=== PATIENT | male | born 1965 | race Caucasian/White ===

== ENCOUNTER 2019-11-29 15:20 | Emergency (ER) | payer OTHER, SELFPAY ==
--- NOTE | ~2019-11-29 | CT_ITS ---
EXAMINATION: CT lumbar spine wo torsten EXAM DATE: 11/29/2019 15:49 INDICATION: Initial encounter following injury, with pain of the severe back pain, after fall. Radia ting down right leg. TECHNIQUE: Spiral CT lumbar spine was performed without contrast. Axial, coronal and sagittal images of the lumbar spine were reviewed. The dose-length product (DLP) for this examination was 959.83 mGy- cm. The exposure was tailored according to patient size (auto mA exposure control), and iterative re construction (ASIR) was used as additional dose reduction technique. There is no prior study for com aleksandra. FINDINGS: Sacrum, sacroiliac joints, sacral arcuate lines are intact. Shunt/identified within the lower abdomen . Probable 2 cm hemangioma within the L4 vertebral body. There is moderate disc disease L2-L5, and mi ld chronic appearing loss of vertebral body heights L2-L4 with moderate sized Schmorl's nodes at thes e endplates. There is no evidence of acute lumbar fracture or spondylolysis. There is no disc space widening or traumatic vertebral body subluxation suspected. Paraspinal soft tissue is unremarkable. Vertebral body and disc heights are well-maintained. There is moderate disc bulge at L4-5 causing moderate central canal and neural foraminal stenosis. Lesser stenosis at the other levels. Mild to m oderate scattered colonic diverticulosis. Overall mild lumbar facet arthropathy. A detailed level by level evaluation of spondylosis can be added as addendum if requested. IMPRESSION: 1. No acute lumbar findings. 2. Moderate spondylosis at L4-5. Reviewed, dictated and finalized at location A.
[2019-11-29 15:24] VITALS: BP 129/64; PULSE 58; RESP 18; TEMP 36.8; O2SAT 98
[2019-11-29] MEDS: MORPHINE SULFATE 4 MG/ML INJ IV PUSH (16:00)
--- NOTE | 2019-11-29 16:48 | ED.BACK ---
HPI - Back Pain/Injury General Chief Complaint: Back Pain/Injury Stated Complaint: severe back pain after fall Time Seen by Provider: 11/29/19 15:23 History of Present Illness HPI Narrative: Patient is a 54-year-old male who presents the ER with low back pain. Patient was moving a plant yesterday when he slipped and fell landing on his buttock. He had sudden onset pain in his low back was progressively worsening over the last 24 hours. Pain radiates down his right leg to his big toe. No saddle anesthesia or difficulty with urination/defecation. He is tried no oral medications for his pain. Pain is worsened by bending/standing. No alleviating factors other than laying on his left side for improvement of discomfort. Related Data Allergies Allergy/AdvReac Type Severity Reaction Status Date / Time iodine Allergy Unknown Skin Verified 07/02/19 13:15 irritation Contrast Media Allergy Unknown Unknown Uncoded 07/02/19 13:15 Review of Systems Review of Systems: All systems reviewed & are unremarkable except as noted in HPI and below Musculoskeletal: Musculoskeletal: Reports back pain and Reports muscle cramps Neurologic: Denies focal weakness and Denies numbness PMFSH Past Medical History Medical History (Updated 11/29/19 @ 16:52 by Billy Gonsalves MD) Abscess Social History Social History (Updated 07/02/19 @ 13:19 by Magdalena Torres CMA) Smoking status: Former smoker Second hand tobacco smoke exposure: No Smoking end date: 06/30/15 Alcohol intake: never Substance use: current Substance use type: marijuana Other substance usage details: medical perscription Gender identity (if verbalized by the patient): Male Exam Narrative: Exam Narrative: GENERAL: Uncomfortable-appearing, well-nourished, and in no acute distress. HEAD: Normocephalic, atraumatic. ENT: Mucous membranes moist. CHEST: Clear to auscultation. No respiratory distress. HEART: Regular rate and rhythm. Normal peripheral pulses. ABDOMEN: Soft, nontender, nondistended. EXTREMITIES: Normal range of motion. No edema. Back: Midline tenderness over L3-L4 midline as well as in the right paraspinal musculature. No abrasions or contusions. NEURO: No focal deficits. Alert and oriented x3. PSYCH: Normal mood and affect. Course Course Emergency Course: Patient informed of results. Pain improved with morphine. Discussed treatment plan and patient verbalized understanding. Vital Signs Vital signs: Vital Signs Temperature 98.3 F 11/29/19 15:24 Pulse Rate 58 L 11/29/19 15:24 Respiratory Rate 18 11/29/19 15:24 Blood Pressure 129/64 11/29/19 15:24 Pulse Oximetry 98 11/29/19 15:24 Temperature 98.3 F 11/29/19 15:24 Pulse Rate 58 L 11/29/19 15:24 Respiratory Rate 18 11/29/19 15:24 Blood Pressure 129/64 11/29/19 15:24 Pulse Oximetry 98 11/29/19 15:24 Discharge Plan Discharge Clinical Impression: Strain of lumbar region Patient Disposition: Home, Self-Care Condition: Stable Instructions: Acute Low Back Pain (ED) Additional Instructions: Return to the ER if you have increased pain in your back, you develop lower extremity weakness/numbness/paralysis, you have numbness or tingling in your private parts, or you are unable to control your ability to urinate/stool. Prescriptions: New hydrocodone-acetaminophen 5-325 mg tablet 1 tablet PO Q6H PRN (Reason: pain) Qty: 20 RF: 0 naproxen 500 mg tablet 500 mg PO BID Qty: 20 RF: 0 cyclobenzaprine 10 mg tablet 10 mg PO TID PRN (Reason: muscle spasm) Qty: 20 RF: 0 No Action lamotrigine 150 mg tablet 150 mg PO BID Qty: 180 RF: 3 duloxetine 30 mg capsule,delayed release(DR/EC) 30 mg PO DAILY Qty: 90 RF: 0 sertraline 100 mg tablet 200 mg PO DAILY Qty: 180 RF: 0 Follow-up/Referrals: Eli Herndon MD [Primary Care Provider] - 1 Week
[2019-11-29 17:21] VITALS: BP 138/76; PULSE 70; RESP 20; O2SAT 99
== END 2019-11-29 17:23 | disposition home or self-care (01) ==
PROVIDERS: Emergency Provider Emergency Medicine; PCP Family Medicine
DX: S39.012A Strain of muscle, fascia and tendon of lower back, initial encounter (principal); Z87.891 Personal history of nicotine dependence; W01.0XXA Fall on same level from slipping, tripping and stumbling without subsequent striking against object, initial encounter
CPT/HCPCS: 72131; 96374; 99284; J2270

== ENCOUNTER 2023-09-25 12:46 | Outpatient (CLI) | payer OTHER, SELFPAY ==
--- NOTE | ~2023-09-25 | CT_ITS ---
EXAMINATION: CT brain wo con DATE: 09/25/2023 13:09 INDICATION: Status post shunt placement. Recent fall. TECHNIQUE: Computed tomography (CT) of the head was performed without intravenous contrast. The dose- length product was 645.69 mGy-cm. Automated exposure control and iterative reconstruction technique w ere employed. COMPARISON: CT dated 10/17/2015 FINDINGS: There is an acute right frontal-parietal epidural hemorrhage. The hemorrhage measures appro ximately 1.7 cm transversely. There is mass effect. Right sided ventriculostomy catheter tip in the l ateral ventricle. No significant midline shift. No depressed skull fracture is seen. Paranasal sinuse s demonstrate mild mucosal thickening of the ethmoid and sphenoid sinuses. Mastoids are pneumatized. No infarction. IMPRESSION: 1. Acute right hemispheric epidural hemorrhage with mild mass effect. No midline shift. Reviewed, dictated and finalized at location L. IMPRESSION: 1. Acute right hemispheric epidural hemorrhage with mild mass effect. No midlin e shift.
== END 2023-09-25 12:47 ==
PROVIDERS: PCP Family Medicine; Visit Provider Physician Assistant
DX: S06.4XAA Epidural hemorrhage with loss of consciousness status unknown, initial encounter (principal); Z98.2 Presence of cerebrospinal fluid drainage device
CPT/HCPCS: 70450

== ENCOUNTER 2023-11-14 13:52 | Outpatient (CLI) | payer OTHER, SELFPAY ==
--- NOTE | ~2023-11-14 | CT_ITS ---
EXAMINATION: CT brain wo con DATE: 11/14/2023 14:04 INDICATION: Ventricular peritoneal shunt. TECHNIQUE: Computed tomography (CT) of the head was performed without intravenous contrast. The mA wa s adjusted according to patient size. Iterative reconstruction technique was employed. The dose-lengt h product was 645.69 mGy-cm. COMPARISON: Head CT 09/25/2023 FINDINGS: There is a right frontoparietal subdural hematoma of mixed density with maximum thickness o f 2.0 cm. There is no acute ischemic infarct or abnormal mass lesion. The ventricles are dilated out of proportion to the size of the sulci. There is 3 mm leftward midline shift. There is a right fronta l ventriculostomy catheter with tip at the septum pellucidum. There is mucosal thickening in the para nasal sinuses. The orbits are normal. The mastoid air cells are normal. IMPRESSION: 1. Right frontoparietal subdural hematoma, stable from 09/25/2023. 2. Stable ventriculomegaly with shunt catheter in expected position. Reviewed, dictated and finalized at location E.
== END 2023-11-14 13:53 ==
PROVIDERS: PCP Family Medicine; Visit Provider Neurological Surgery
DX: I62.03 Nontraumatic chronic subdural hemorrhage (principal); Z98.2 Presence of cerebrospinal fluid drainage device
CPT/HCPCS: 70450

== ENCOUNTER 2024-02-24 14:33 | Outpatient (CLI) | payer OTHER, SELFPAY ==
--- NOTE | ~2024-02-24 | CT_ITS ---
EXAMINATION: CT brain wo con DATE: 02/24/2024 14:47 INDICATION: Subdural hematoma TECHNIQUE: Computed tomography (CT) of the head was performed without intravenous contrast. Sagittal and coronal reconstructions were performed. Automated exposure control and iterative reconstruction t echnique were employed. The dose-length product was 726.40 mGy-cm. COMPARISON: head CT dated 11/14/2023 FINDINGS: Again seen is a right frontal ventriculostomy catheter with tip along the septum pellucidum. Again se en is now more symmetric ventriculomegaly with significant decrease in the prior mass effect resultin g from the chronic right frontoparietal subdural hematoma which is decreased in size, previously olvin uring up to 1.9 cm in thickness, currently measuring 10 mm in thickness. The prior 3 mm [id number] midline shift has also resolved. No acute infarction or acute intracranial hemorrhage. No abnormal mass lesion. Mild mucoperiosteal thickening the bilateral ethmoid sinuses. The orbits and mastoid air cells are normal. IMPRESSION: 1. Decrease in size of a chronic right frontoparietal subdural hematoma with corresponding decrease i n the degree of mass effect upon the right lateral ventricle and resolution of the prior minimal righ t to left midline shift. 2. Otherwise stable ventriculomegaly with unchanged right frontal ventriculostomy catheter in expecte d position. Reviewed, dictated and finalized at location A. IMPRESSION: 1. Decrease in size of a chronic right frontoparietal subdural hematoma with co rresponding decrease in the degree of mass effect upon the right lateral ventri olegario and resolution of the prior minimal right to left midline shift. 2. Otherwise stable ventriculomegaly with unchanged right frontal ventriculosto my catheter in expected position.
== END 2024-02-24 14:34 ==
LOC: GOSHIMG 14:33
PROVIDERS: PCP Family Medicine
DX: S06.5XAA Traumatic subdural hemorrhage with loss of consciousness status unknown, initial encounter (principal); X58.XXXA Exposure to other specified factors, initial encounter
CPT/HCPCS: 70450

== ENCOUNTER 2024-04-23 15:34 | Outpatient (CLI) | payer OTHER, SELFPAY ==
--- NOTE | ~2024-04-23 | CT_ITS ---
CT brain wo con Ordering provider: Licha Aguilar History: 59 years Male with . Subdural hematoma . Comparison: February 24, 2024 Technique: CT of the head without contrast. Radiation reduction technique utilized. The dose-length product was 726.4 mGy-cm. FINDINGS: BRAIN PARENCHYMA AND CSF SPACES: Dilated ventricles with right frontal shunt is noted. The tip of the shunt tube is near to the midline.3 No midline shift, mass effect or hemorrhage. The brain parenchy ma and CSF spaces are otherwise normal. VISUALIZED PARANASAL SINUSES: Well aerated. MASTOIDS: Well aerated. BONES: The bones appear intact. SOFT TISSUES: Visualized nasopharynx is normal. Superficial soft tissues are normal. IMPRESSION: No acute intracranial findings. Hydrocephalus which is slightly increased compared to previous examination. No definite shunt disrupt ion seen. Reviewed, dictated and finalized at location A. IMPRESSION: No acute intracranial findings. Hydrocephalus which is slightly increased compared to previous examination. No definite shunt disruption seen.
== END 2024-04-23 15:35 | disposition home or self-care (01) ==
PROVIDERS: PCP Family Medicine; Referring Provider Neurological Surgery
DX: S06.5XAA Traumatic subdural hemorrhage with loss of consciousness status unknown, initial encounter (principal); G91.9 Hydrocephalus, unspecified
CPT/HCPCS: 70450

== ENCOUNTER 2024-11-05 14:30 | Outpatient (RCR) | payer OTHER, SELFPAY ==
--- NOTE | 2024-09-24 15:39 | OPREHPOC ---
Outpatient Therapy Plan of Care This is a Multidisciplinary Plan of Care that may contain components documented by all disciplines (PT, OT, and ST.) PT Problem 1 PT Problem #1 Knowledge Deficit PT Goal 1 Goal / Goal Update Demonstrate carry over with performance of exercise. Target Visit 4 PT Problem 2 PT Problem #2 Impaired Functional Mobility PT Goal 1 Goal / Goal Update 1. Improve Tinetti score by 5 point reducing fall risk 2. Improve 2 minute walk test to 500+ feet to improve gait speed and reduce fall risk Target Visit 8 PT Problem 3 PT Problem #3 Impaired Gait PT Goal 1 Goal / Goal Update 1. Demonstrate full clearance of que feet with gait 2. Demonstrate ability to maintain balance on uneven surface without LOB for 30 seconds Target Visit 8
--- NOTE | 2024-09-24 15:39 | PTOPEVAL1 ---
Assessment and note entered by Anirudh Castro, PT Evaluation Information Assessment Status Evaluation ICD-10 Condition Codes (PT) Difficulty Walking R26.2,Abnormalities of gait and mobility R26.9 Onset May 2024 Subjective Information present to help with medical history. Reports that he has been having a lot of stumbling and he has been very sedentary over the winter. Has a history of high level activity but has been slowing down. They have met with the GP and neurosurgeon and awaiting more information. Shunt is currently off due to brain bleed. Falls have been frequent and he tends to drift posteriorly and laterally. He has three flights of steps to get down to the garage and is a big fall hazard. Reports that he is having a lot of trouble with retention. Reports no trouble sleeping. Reported Pain Level Pain Score 0: Self Report Assessment PT Clinical Summary Patient presents with deficits in lower extremity coordination and balance along with tightness in hip and ankles. Strength appears to be adequate for performance, but there is definite coordination and endurance deficits. Presents as high fall risk in Tinetti testing this date. Will benefit from skilled therapy to address these deficits to lower fall risk and improve gross functional improvement. We will assess carry over with instructions on a weekly basis. Plan of Care Interventions Gait Training,Manual Therapy,Neuro Re-education, Therapeutic Activities,Therapeutic Exercise PT Services Indicated Yes Treatment Frequency and 2x/week for 8 visits Duration These treatments will address the objective and functional deficits as defined above. The patient will be advanced safely and appropriately in order for the patient to progress towards his/her prior level of function. Additional exercises will be introduced and as well as a comprehensive home exercise program upon discharge, if needed, ?to ensure carryover of functional gains achieved in the clinic. This treatment plan has been reviewed and agreement upon by the patient.
--- NOTE | 2024-10-19 14:00 | OPREHPOC ---
Outpatient Therapy Plan of Care This is a Multidisciplinary Plan of Care that may contain components documented by all disciplines (PT, OT, and ST.) PT Problem 1 PT Problem #1 Knowledge Deficit PT Goal 1 Goal / Goal Update Demonstrate carry over with performance of exercise. Target Visit 4 Progress Met PT Problem 2 PT Problem #2 Impaired Functional Mobility PT Goal 1 Goal / Goal Update 1. Improve Tinetti score by 5 point reducing fall risk 2. Improve 2 minute walk test to 500+ feet to improve gait speed and reduce fall risk -Still lacking on 2 minute walk test but improved Target Visit 16 Progress Partially Met PT Problem 3 PT Problem #3 Impaired Gait PT Goal 1 Goal / Goal Update 1. Demonstrate full clearance of que feet with gait - Met 2. Demonstrate ability to maintain balance on uneven surface without LOB for 30 seconds - Progressing Target Visit 16 Progress Partially Met
--- NOTE | 2024-10-19 14:01 | PTOPPROG ---
Assessment and note entered by Anirudh Castro, PT Evaluation Information Assessment Status Progress ICD-10 Condition Codes (PT) Difficulty Walking R26.2,Abnormalities of gait and mobility R26.9 Onset May 2024 Subjective Information Patient reports that he was [id number] in the backyard yesterday and tripped falling into the fence. Denies any pain. reports that he keeps forgetting to wear a belt as well and that is giving him balance problems. Reports that since starting therapy he feels better. Feels that the changing of the seasons have given him a little more energy. Still having some problems on step up activity. Seems to be doing better on even surfaces. Assessment PT Clinical Summary Patient has made excellent progress in strength and stabilization as indicated in improvements in strength and Tinetti test. Patient still shows significant room for improvement and has been compliant. Patient will continue to benefit from skilled therapy to address these deficits to improve endurance, balance, and functional gross mobility. Plan of Care Interventions Gait Training,Manual Therapy,Neuro Re-education, Therapeutic Activities,Therapeutic Exercise PT Services Indicated Yes Treatment Frequency and 2x/week for 8 visits Duration These treatments will address the objective and functional deficits as defined above. The patient will be advanced safely and appropriately in order for the patient to progress towards his/her prior level of function. Additional exercises will be introduced and as well as a comprehensive home exercise program upon discharge, if needed, ?to ensure carryover of functional gains achieved in the clinic. This treatment plan has been reviewed and agreement upon by the patient.
--- NOTE | 2024-11-26 13:20 | PTOPDC ---
Assessment and note entered by Anirudh Castro, PT Evaluation Information Assessment Status Discharge - Pt Not Present ICD-10 Condition Codes (PT) Difficulty Walking R26.2,Abnormalities of gait and mobility R26.9 Onset May 2024 Subjective Information Patent spouse contacted clinic stating that they planned to transition to a gym program with a director personal. Requests discharge from skilled therapy at this time. Assessment PT Clinical Summary Patient to be discharged at this time per request. Will discharge to personal training and gym program which was discussed in therapy. Please refer to last treatment note for discharge status. Plan of Care PT Services Indicated Yes
== END 2024-11-26 13:58 | disposition home or self-care (01) ==
LOC: ANHGOSHPT 14:30
PROVIDERS: PCP Family Medicine; Visit Provider Nurse Practitioner Family
DX: R26.81 Unsteadiness on feet (principal); R26.89 Other abnormalities of gait and mobility
CPT/HCPCS: 97110; 97112; 97116; 97161; 97530